=== PATIENT | female | born 1945 ===

== ENCOUNTER 2017-04-12 06:32 | Emergency (ER) | payer OTHER, MEDICARE ==
[~2017-04-12] VITALS: Ht 162.6 cm; Wt 65.8 kg
[~2017-04-12 06:32] MED LIST: APAP325 MG PO; AUGMENTIN 875-1 EACH PO; CLOBETASOL0.05 %/60 TOP; FUROSEMIDE40 MG PO; KEFLEX500 M1 PO; LACTULOSE10 GM/153 PO; OMEPRAZOLE40 MG PO; SPIRONOLACTONE50 MG PO; XIFAXAN550 MG PO
[2017-04-12 06:38] VITALS: BP 132/80
--- NOTE | 2017-04-12 06:38 | ED HAND/WRIST INJURY COMPLAINT ---
History of Present Illness General Chief Complaint: Laceration Procedure Stated Complaint: LAC TO RIGHT HAND, S/P SLIP AND FALL Source: patient, family Exam Limitations: no limitations Vital Signs & Intake/Output Vital Signs & Intake/Output Vital Signs Date Time Temp Pulse Resp B/P B/P Pulse O2 O2 Flow FiO2 Mean Ox Delivery Rate 04/12 0638 98.1 72 16 132/80 100 Room Air Allergies Coded Allergies: amoxicillin (DIARRHEA 07/28/16) Reconcile Medications Acetaminophen (Apap) 325 MG TAB 2 TAB PO PRN PAIN (Reported) Furosemide 40 MG TABLET 1 TAB PO BID DIURETIC (Reported) Lactulose 10 GM/15 ML SOLUTION 45 ML PO QPM LIVER (Reported) Omeprazole 40 MG CAPSULE.DR 1 CAP PO DAILY GERD (Reported) Rifaximin (Xifaxan) 550 MG TAB 1 TAB PO BID LIVER (Reported) Spironolactone 50 MG TABLET 2 TAB PO BID DIURETIC (Reported) Triage Nurses Notes Reviewed? yes Occurred: just prior to arrival Timing: single episode today Injury Environment: home Severity: mild Pain/Injury Location: Right: Hand. Context: fall No Modifying Factors: none HPI: This is a 71-year-old female with history of hep C cirrhosis currently on the liver transport and presents to the ER for chief complaint of laceration to the right hand. She states she was in the bathroom and banged her head hand against the counter. There was some initial bleeding at the scene. Her dressed her wound. Patient states because of liver disease she has low platelets and bleeds very easily. She also hit her right shoulder knees and left foot. She did not fall to the ground. Did not hit her head or lose consciousness. Past History Travel History Traveled to [place] past 21 day No Medical History Any Pertinent Medical History? see below for history Neurological: NONE EENT: NONE Cardiovascular: NONE Respiratory: NONE Gastrointestinal: NONE Hepatic: hepatitis C, END STAGE LIVER DISEASE Renal: NONE Musculoskeletal: NONE Psychiatric: NONE Endocrine: NONE Blood Disorders: thrombocytopenia Cancer(s): NONE EXTENDER/Reproductive: NONE Surgical History Surgical History: non-contributory, N Psychosocial History What is your primary language [place] Family History Hx Contributory? No Review of Systems Review of Systems Constitutional: Denies: chills, fever. EENTM: Reports: no symptoms. Respiratory: Denies: cough, short of breath. Cardiovascular: Denies: chest pain. GI: Denies: abdominal pain. Genitourinary: Reports: no symptoms. Musculoskeletal: Reports: no symptoms. Skin: Reports: no symptoms. Neurological/Psychological: Reports: no symptoms. Hematologic/Endocrine: Reports: bruising, bleeding. Denies: polyuria, polydipsia. Immunologic/Allergic: Denies: splenectomy. All Other Systems: Reviewed and Negative Physical Exam Physical Exam General Appearance: well developed/nourished, mild distress Head: atraumatic Eyes: Bilateral: PERRL, EOMI. Ears, Nose, Throat: normal pharynx, normal ENT inspection, hearing grossly normal Neck: normal inspection, supple Cardiovascular/Respiratory: normal breath sounds, regular rate/rhythm Back: normal inspection Shoulder Left: normal range of motion, normal inspection Shoulder Right: soft tissue tenderness, BRUISING, NO DEFORMITY Elbow Left: normal inspection Elbow Right: normal range of motion, normal inspection Forearm Left: normal range of motion, normal inspection Forearm Right: normal range of motion, normal inspection Wrist Left: normal range of motion, normal inspection Wrist Right: normal range of motion, normal inspection Hand Left: 1st finger, 2nd finger, 3rd finger Hand Right: SKIN TEAR OVER DORSAL ASPECT RIGHT 3 DIGITIS Neurologic/Tendon: normal sensation, normal motor functions, normal tendon functions Skin: intact, normal color, warm/dry Lymphatic: no anterior cervical james Progress Differential Diagnosis: SKIN TEAR, SHOULDER CONTUSION, KNEE CONTUSION Plan of Care: Current Medications Sig/Rachel Start time Last Medication Dose Stop Time Status Admin Acetaminophen 650 MG ONCE ONE 04/12 0700 UNVr (Tylenol) 04/12 0701 Departure Departure Time of Disposition: 06 Disposition: HOME OR SELF CARE Condition: Stable Clinical Impression Primary Impression: Contusion of right shoulder Secondary Impressions: Knee contusion, Skin tear of right hand without complication Referrals: LIANA MUÑOZ MD (PCP/Family) Additional Instructions: TAKE TYLENOL NEEDED FOR PAIN. ICE THE SHOULDER, KNEES AND FOOT DISCUSSED. KEEP THE STERISTRIPS ON UNTIL THEY FALL OFF. IF THE HAND WOUND BECOMES WARM, RED OR MORE PAINFUL RETURN FOR REEVALUATION. Departure Forms: Customer Survey General Discharge Information Procedures Laceration/Wound Repair Laceration/Wound Repair: Wound Location: RIGHT HAND Wound Repaired With: Steri-strips Tetanus Status: up to date
== END 2017-04-12 07:01 ==
LOC: ERH 06:32
DX: S61.411A Laceration without foreign body of right hand, initial encounter (principal); S40.011A Contusion of right shoulder, initial encounter; W22.03XA Walked into furniture, initial encounter; Y93.9 Activity, unspecified; Y92.9 Unspecified place or not applicable